=== PATIENT | male | born 1970 | race African-American/Black ===

== ENCOUNTER 2023-07-13 15:52 | Inpatient (IN) | payer OTHER ==
[~2023-07-13] VITALS: Ht 170.2 cm; Wt 88.0 kg
[2023-07-13 16:32] LABS: HEMATOCRIT. 46.2 % (42.0-52.0); HEMOGLOBIN. 15.7 g/dL (14.0-18.0); MEAN CORPUSCULAR HEMOGLOBIN 30.7 pg (28.0-32.0); MEAN CORPUSCULAR HGB CONC 33.9 g/dL (31.0-37.0); MEAN CORPUSCULAR VOLUME 90.4 fL (80.0-94.0); MEAN PLATELET VOLUME 9.1 fl (7.4-10.4); PLATELET 260 x1000/uL (130-400); RED BLOOD CELL COUNT 5.11 mill/uL (4.7-6.1); RED CELL DISTRIBUTION WIDTH 14.4 % (11.6-14.6); WHITE BLOOD COUNT 31.3 x1000/uL (4.5-11.0)
[2023-07-13 16:34] LABS: DIFFERENTIAL COMMENT 1
[2023-07-13] MEDS: ETOMIDATE 2MG/ML 10ML VIAL IV ONE (16:34)
[2023-07-13] MEDS: SUCCINYLCHOLINE CHLORIDE 200MG/10ML IV ONE (16:35)
[2023-07-13 16:36] VITALS: PULSE 125; RESP 36
[2023-07-13] MEDS ORDERED: FENTANYL 2500MCG/250ML PMX 250 ML IV ONE (16:45)
[2023-07-13 16:49] LABS: AMMONIA < 17 uMol/L (<32)
[2023-07-13 16:50] LABS: PLATELET ESTIMATE NORMAL
[2023-07-13 16:52] LABS: ACETAMINOPHEN < 2 ug/mL (10-30); ALANINE AMINOTRANSFERASE 266 IU/L (10-49); ALBUMIN 5.3 g/dL (3.2-4.8); ASPARTATE AMINOTRANSFERASE 286 IU/L (<34); CALCIUM 9.2 mg/dL (8.7-10.4); CARBON DIOXIDE 18 mEq/L (21-32); CHLORIDE 109 mEq/L (98-107); GLUCOSE 96 mg/dL (70-105); PROTEIN TOTAL 8.5 g/dL (6.0-8.3); SODIUM 139 mEq/L (136-145); THYROID STIMULATING HORMONE 1.82 uIU/mL (0.55-4.78); UREA NITROGEN BLOOD 22 mg/dL (9-23)
[2023-07-13 16:55] LABS: LACTIC ACID 2.8 mmol/L (0.4-2.0)
[2023-07-13] MEDS: PROPOFOL 10MG/ML 100ML 100 ML IV ONE (16:59)
[2023-07-13] MEDS: FENTANYL 2500MCG/250ML PMX 250 ML IV PRN (17:00)
[2023-07-13] MEDS: SODIUM CHLORIDE 0.9% 1,000 ML IV ONE ×2 (17:00→17:51)
[2023-07-13] MEDS: MIDAZOLAM HCL 2 MG/2 ML VIAL IV ONE ×2 (17:00→17:20)
[2023-07-13] MEDS ORDERED: MIDAZOLAM 100MG/100ML PMX 100 ML IV PRN (17:00)
[2023-07-13 17:01] LABS: ETHANOL BLOOD < 10 mg/dL (<10); POTASSIUM 6.2 mEq/L (3.5-5.1); TROPONIN I HIGH SENSITIVITY 1842 ng/L (3.0-53)
[2023-07-13] MEDS ORDERED: CALCIUM GLUCONATE 1,000 MG in DEXT 5% WATER 100 ML IV ONE (17:15)
[2023-07-13 17:20] VITALS: PULSE 95; RESP 34
[2023-07-13] MEDS: ALBUTEROL (0.083%) 2.5MG/3ML NEB HHN SCH (17:20)
[2023-07-13] MEDS: CALCIUM GLUCONATE 1GM PREMIX 50 ML IV NR (17:40)
[2023-07-13] MEDS: DEXTROSE 50% WATER 50ML SYRINGE IV ONE (17:41)
[2023-07-13 17:45] VITALS: PULSE 102; RESP 25
[2023-07-13] MEDS: SODIUM BICARBONATE 8.4% 1 MEQ/ML 50ML SYR IV ONE (17:51)
[2023-07-13] MEDS: INSULIN REGULAR (HUMULIN R) 300UNITS/3ML VIAL IV ONE (17:51)
[2023-07-13 17:52] LABS: CLARITY URINE CLOUDY (CLEAR); COLOR URINE YELLOW (YELLOW); GLUCOSE URINE NEGATIVE (NEGATIVE); KETONES URINE TRACE (NEGATIVE); LEUKOCYTE ESTERASE URINE NEGATIVE (NEGATIVE); NITRITE URINE NEGATIVE (NEGATIVE); OCCULT BLOOD URINE 2+ (NEGATIVE); PH URINE 5.5 (4.5-8.0); PROTEIN URINE 2+ (NEGATIVE); SPECIFIC GRAVITY URINE 1.012 (1.005-1.030); UROBILINOGEN URINE 0.2 E.U./dL (0.2-1.0)
[2023-07-13 18:11] VITALS: PULSE 98; RESP 25
[2023-07-13 18:27] LABS: BACTERIA URINE 2+; SQUAMOUS EPITHELIAL CELL URINE 1+ /lpf (RARE/1+)
[2023-07-13 18:28] LABS: HYALINE CASTS URINE 0-5 /lpf; MUCUS URINE 1+ /lpf (NONE/TRACE); WBC URINE 0-2 /hpf (0-2)
[2023-07-13 18:29] LABS: COARSE GRANULAR CASTS URINE 0-5 /lpf
[2023-07-13 18:36] LABS: *AMPHETAMINES SCREEN URINE NEGATIVE (NEGATIVE); *BARBITURATES SCREEN URINE NEGATIVE (NEGATIVE); *BENZODIAZEPINES SCREEN URINE PRESUMPTIVE POSITIVE (NEGATIVE); *COCAINE SCREEN URINE PRESUMPTIVE POSITIVE (NEGATIVE); CANNABINOID URINE SCREEN NEGATIVE (NEGATIVE); ECSTASY MDMA SCREEN URINE NEGATIVE (NEGATIVE); METHADONE URINE SCREEN Neg (NEGATIVE); OPIATES URINE SCREEN NEGATIVE (NEGATIVE); PHENCYCLIDINE URINE SCREEN NEGATIVE (NEGATIVE)
[2023-07-13 19:05] LABS: BG BASE EXCESS -4.9 mmol/L (-2.0-2.0); BG CARBOXYHEMOGLOBIN 0.8 % (0.5-1.5); BG DEOXYHEMOGLOBIN 0.7 % (0.0-5.0); BG FRACTION INSPIRED OXYGEN 100; BG HCO3 ACT 20.9 mmol/L (22.0-26.0); BG METHEMOGLOBIN 0.5 % (0.0-1.5); BG OXYGEN SATURATION 99.3 % (92.0-98.5); BG PCO2 41.2 mmHg (35.0-45.0); BG PH 7.323 (7.350-7.450); BG PO2 263.8 mmHg (75.0-100.0); BG SAMPLE SITE RIGHT RADIAL; BG VENT MODE VENT - AC
[2023-07-13 20:05] VITALS: PULSE 100; RESP 18
[2023-07-13] MEDS: PIPERACILLIN/TAZO 3.375G/50ML 50 ML IV STA (20:14)
[2023-07-13] MEDS: PROPOFOL 10MG/ML 100ML 100 ML IV PRN (22:56)
[2023-07-13 23:10] VITALS: PULSE 99; RESP 20
[2023-07-13] MEDS: PIPERACILLIN/TAZO 3.375G/50ML 50 ML IV SCH (23:41)
[2023-07-13 23:52] LABS: CREATINE KINASE 750 IU/L (46-171)
[2023-07-14] VITALS (59 sets, daily range): BP systolic 98–152; BP diastolic 69–94; PULSE 75–114; RESP 18–31; TEMP 98.5–102.7
[2023-07-14] MEDS: SODIUM CHLORIDE 0.9% 1,000 ML IV ONE (00:19)
[2023-07-14] MEDS: DEXT 5%/0.45% NACL 1000ML 1,000 ML IV SCH (00:20)
[2023-07-14 06:00] LABS: BASOPHILS % 0.3 % (0.0-2.0); EOSINOPHILS % 0.1 % (0.0-5.0); HEMOGLOBIN. 14.4 g/dL (14.0-18.0); LYMPHOCYTES % 9.2 % (20.0-50.0); MEAN CORPUSCULAR HEMOGLOBIN 30.6 pg (28.0-32.0); MEAN CORPUSCULAR HGB CONC 33.5 g/dL (31.0-37.0); MEAN CORPUSCULAR VOLUME 91.2 fL (80.0-94.0); MEAN PLATELET VOLUME 8.9 fl (7.4-10.4); MONOCYTES % 8.2 % (2.0-8.0); NEUTROPHILS % 82.2 % (40.0-76.0); PLATELET 192 x1000/uL (130-400); RED BLOOD CELL COUNT 4.71 mill/uL (4.7-6.1); RED CELL DISTRIBUTION WIDTH 15.1 % (11.6-14.6); WHITE BLOOD COUNT 16.5 x1000/uL (4.5-11.0)
[2023-07-14 06:07] LABS: PROTHROMBIN TIME 11.3 sec (9.6-11.0)
[2023-07-14 06:23] LABS: CALCIUM 8.5 mg/dL (8.7-10.4); CARBON DIOXIDE 23 mEq/L (21-32); CHLORIDE 114 mEq/L (98-107); GLUCOSE 126 mg/dL (70-105); POTASSIUM 4.3 mEq/L (3.5-5.1); SODIUM 143 mEq/L (136-145); UREA NITROGEN BLOOD 19 mg/dL (9-23)
[2023-07-14 06:25] LABS: CREATININE 1.9 mg/dL (0.6-1.3)
[2023-07-14 06:33] LABS: TROPONIN I HIGH SENSITIVITY 11566 ng/L (3.0-53)
[2023-07-14 07:58] LABS: BG BASE EXCESS -4.9 mmol/L (-2.0-2.0); BG CARBOXYHEMOGLOBIN 0.7 % (0.5-1.5); BG DEOXYHEMOGLOBIN 2.1 % (0.0-5.0); BG FRACTION INSPIRED OXYGEN 60; BG HCO3 ACT 21.3 mmol/L (22.0-26.0); BG METHEMOGLOBIN 0.2 % (0.0-1.5); BG OXYGEN SATURATION 97.9 % (92.0-98.5); BG PCO2 43.7 mmHg (35.0-45.0); BG PH 7.306 (7.350-7.450); BG SAMPLE SITE RIGHT RADIAL; BG TOTAL HEMOGLOBIN 15.3 g/dL (12.0-18.0); BG VENT MODE VENT - AC
[2023-07-14] MEDS: FENTANYL 2500MCG/250ML PMX 250 ML IV PRN ×2 (09:46→19:13)
[2023-07-14] MEDS: PANTOPRAZOLE SODIUM 40 MG/VIAL IV SCH (11:18)
[2023-07-14] MEDS: AZITHROMYCIN 500MG/250ML 250 ML IV SCH (18:26)
[2023-07-14] MEDS: PIPERACILLIN/TAZO 3.375G/50ML 50 ML IV SCH (18:37)
[2023-07-14] MEDS: ACETAMINOPHEN 650MG/20.3ML UDC GT PRN (19:56)
[2023-07-14] MEDS: PROPOFOL 10MG/ML 100ML 100 ML IV PRN (23:14)
[2023-07-15] VITALS (69 sets, daily range): BP systolic 70–172; BP diastolic 44–114; PULSE 10–134; RESP 18–44; TEMP 98.8–102.8
[2023-07-15 05:38] LABS: BASOPHILS % 0.3 % (0.0-2.0); EOSINOPHILS % 0.8 % (0.0-5.0); HEMATOCRIT. 41.5 % (42.0-52.0); HEMOGLOBIN. 13.9 g/dL (14.0-18.0); LYMPHOCYTES % 9.6 % (20.0-50.0); MEAN CORPUSCULAR HEMOGLOBIN 30.8 pg (28.0-32.0); MEAN CORPUSCULAR HGB CONC 33.4 g/dL (31.0-37.0); MEAN CORPUSCULAR VOLUME 92.1 fL (80.0-94.0); MEAN PLATELET VOLUME 9.6 fl (7.4-10.4); MONOCYTES % 9.5 % (2.0-8.0); NEUTROPHILS % 79.8 % (40.0-76.0); PLATELET 167 x1000/uL (130-400); RED CELL DISTRIBUTION WIDTH 15.2 % (11.6-14.6); WHITE BLOOD COUNT 16.9 x1000/uL (4.5-11.0)
[2023-07-15 05:42] LABS: CALCIUM 8.9 mg/dL (8.7-10.4); CARBON DIOXIDE 26 mEq/L (21-32); CHLORIDE 112 mEq/L (98-107); CREATININE 1.6 mg/dL (0.6-1.3); GLUCOSE 121 mg/dL (70-105); PHOSPHORUS 2.2 mg/dL (2.5-4.9); POTASSIUM 4.1 mEq/L (3.5-5.1); SODIUM 141 mEq/L (136-145); TRIGLYCERIDE 189 mg/dL (0-150); UREA NITROGEN BLOOD 13 mg/dL (9-23)
[2023-07-15] MEDS ORDERED: HYDR12.54 PO (08:24)
[2023-07-15] MEDS ORDERED: ATOR10TA MT (08:24)
[2023-07-15 10:25] LABS: BG BASE EXCESS -0.3 mmol/L (-2.0-2.0); BG CARBOXYHEMOGLOBIN 0.1 % (0.5-1.5); BG DEOXYHEMOGLOBIN 10.5 % (0.0-5.0); BG FRACTION INSPIRED OXYGEN 40; BG HCO3 ACT 24.1 mmol/L (22.0-26.0); BG METHEMOGLOBIN 0.3 % (0.0-1.5); BG OXYGEN SATURATION 89.5 % (92.0-98.5); BG OXYHEMOGLOBIN 89.1 % (94.0-97.0); BG PCO2 38.9 mmHg (35.0-45.0); BG PO2 55.2 mmHg (75.0-100.0); BG SAMPLE SITE RIGHT RADIAL; BG TOTAL HEMOGLOBIN 14.6 g/dL (12.0-18.0); BG VENT MODE VENT - AC
[2023-07-15] MEDS: PROPOFOL 10MG/ML 100ML 100 ML IV PRN (12:28)
[2023-07-15] MEDS: DEXMEDETOMIDINE 400 MCG/100 ML 100 ML IV PRN (12:31)
[2023-07-15] MEDS: ENOXAPARIN 40MG/0.4ML SYR SUBCUT SCH (14:04)
[2023-07-15] MEDS: NOREPINEPHRINE 8MG/250ML PMX 250 ML IV PRN (19:33)
[2023-07-15] MEDS: VANCOMYCIN 1.5GM/250ML 250 ML IV NR (21:37)
[2023-07-16] VITALS (63 sets, daily range): BP systolic 77–158; BP diastolic 51–118; PULSE 71–111; RESP 12–52; TEMP 98.9–103.3
[2023-07-16 01:26] LABS: BG BASE EXCESS -5.8 mmol/L (-2.0-2.0); BG CARBOXYHEMOGLOBIN 0.3 % (0.5-1.5); BG DEOXYHEMOGLOBIN 18.3 % (0.0-5.0); BG FRACTION INSPIRED OXYGEN 100; BG HCO3 ACT 21.6 mmol/L (22.0-26.0); BG METHEMOGLOBIN 0.2 % (0.0-1.5); BG OXYGEN SATURATION 81.6 % (92.0-98.5); BG OXYHEMOGLOBIN 81.2 % (94.0-97.0); BG PCO2 49.8 mmHg (35.0-45.0); BG PH 7.256 (7.350-7.450); BG PO2 52.3 mmHg (75.0-100.0); BG SAMPLE SITE RIGHT BRACHIAL; BG TOTAL HEMOGLOBIN 14.8 g/dL (12.0-18.0); BG VENT MODE VENT - AC
[2023-07-16] MEDS: MIDAZOLAM 100MG/100ML PMX 100 ML IV PRN (01:57)
[2023-07-16 05:41] LABS: BASOPHILS % 0.7 % (0.0-2.0); EOSINOPHILS % 0.6 % (0.0-5.0); HEMATOCRIT. 39.5 % (42.0-52.0); LYMPHOCYTES % 8.2 % (20.0-50.0); MEAN CORPUSCULAR HEMOGLOBIN 30.8 pg (28.0-32.0); MEAN CORPUSCULAR VOLUME 93.3 fL (80.0-94.0); MEAN PLATELET VOLUME 10.4 fl (7.4-10.4); NEUTROPHILS % 83.5 % (40.0-76.0); PLATELET 114 x1000/uL (130-400); RED BLOOD CELL COUNT 4.24 mill/uL (4.7-6.1); RED CELL DISTRIBUTION WIDTH 15.2 % (11.6-14.6)
[2023-07-16 05:53] LABS: POTASSIUM 4.1 mEq/L (3.5-5.1)
[2023-07-16 05:54] LABS: CALCIUM 8.9 mg/dL (8.7-10.4)
[2023-07-16 05:59] LABS: CREATININE 1.5 mg/dL (0.6-1.3)
[2023-07-16] MEDS ORDERED: POTASSIUM CHLORIDE 20MEQ/PACKET PO ONE (08:15)
[2023-07-16 08:20] LABS: BG BASE EXCESS -6.1 mmol/L (-2.0-2.0); BG CARBOXYHEMOGLOBIN 0.3 % (0.5-1.5); BG DEOXYHEMOGLOBIN 10.9 % (0.0-5.0); BG FRACTION INSPIRED OXYGEN 100; BG HCO3 ACT 20.7 mmol/L (22.0-26.0); BG METHEMOGLOBIN 0.3 % (0.0-1.5); BG OXYHEMOGLOBIN 88.5 % (94.0-97.0); BG PCO2 45.8 mmHg (35.0-45.0); BG PH 7.274 (7.350-7.450); BG PO2 61.8 mmHg (75.0-100.0); BG SAMPLE SITE LEFT RADIAL; BG TOTAL HEMOGLOBIN 14.8 g/dL (12.0-18.0); BG TOTAL RESPIRATORY RATE 24 b/min; BG VENT MODE VENT - AC
[2023-07-16] MEDS: VANCOMYCIN 750MG PREMIX 150 ML IV SCH (13:11)
[2023-07-16] MEDS: METHYLPREDNISOLONE SOD SUCC 125MG/2ML (ACT-O-VIAL) IV SCH (13:11)
[2023-07-16] MEDS: PROPOFOL 10MG/ML 100ML 100 ML IV PRN (16:47)
[2023-07-16] MEDS: PANTOPRAZOLE SODIUM 40 MG/VIAL IV SCH (21:13)
[2023-07-17] VITALS (66 sets, daily range): BP systolic 118–149; BP diastolic 75–92; PULSE 53–85; RESP 24–44; TEMP 96.6–101.2
[2023-07-17 05:39] LABS: HEMOGLOBIN. 12.9 g/dL (14.0-18.0); MEAN CORPUSCULAR HEMOGLOBIN 30.6 pg (28.0-32.0); MEAN CORPUSCULAR HGB CONC 33.1 g/dL (31.0-37.0); MEAN CORPUSCULAR VOLUME 92.4 fL (80.0-94.0); MEAN PLATELET VOLUME 10.2 fl (7.4-10.4); PLATELET 143 x1000/uL (130-400); RED BLOOD CELL COUNT 4.22 mill/uL (4.7-6.1); RED CELL DISTRIBUTION WIDTH 15.1 % (11.6-14.6); WHITE BLOOD COUNT 23.9 x1000/uL (4.5-11.0)
[2023-07-17 05:44] LABS: CHLORIDE 108 mEq/L (98-107); POTASSIUM 4.7 mEq/L (3.5-5.1); SODIUM 139 mEq/L (136-145)
[2023-07-17 05:45] LABS: CARBON DIOXIDE 23 mEq/L (21-32)
[2023-07-17 05:46] LABS: CALCIUM 9.7 mg/dL (8.7-10.4)
[2023-07-17 05:50] LABS: CREATININE 1.4 mg/dL (0.6-1.3); GLUCOSE 185 mg/dL (70-105)
[2023-07-17 05:51] LABS: TRIGLYCERIDE 205 mg/dL (0-150); UREA NITROGEN BLOOD 20 mg/dL (9-23)
[2023-07-17 06:32] LABS: DIFFERENTIAL COMMENT 1
[2023-07-17 10:43] LABS: BG BASE EXCESS -1.8 mmol/L (-2.0-2.0); BG CARBOXYHEMOGLOBIN 0.4 % (0.5-1.5); BG DEOXYHEMOGLOBIN 0.5 % (0.0-5.0); BG FRACTION INSPIRED OXYGEN 100; BG HCO3 ACT 23.5 mmol/L (22.0-26.0); BG METHEMOGLOBIN 0.3 % (0.0-1.5); BG OXYGEN SATURATION 99.5 % (92.0-98.5); BG OXYHEMOGLOBIN 98.8 % (94.0-97.0); BG PH 7.366 (7.350-7.450); BG PO2 231.3 mmHg (75.0-100.0); BG SAMPLE SITE RIGHT RADIAL; BG TOTAL HEMOGLOBIN 13.8 g/dL (12.0-18.0); BG VENT MODE VENT - AC
[2023-07-17 11:13] LABS: PLATELET ESTIMATE NORMAL
[2023-07-18] VITALS (59 sets, daily range): BP systolic 125–161; BP diastolic 72–98; PULSE 53–83; RESP 13–42; TEMP 96.7–99.7
[2023-07-18 05:49] LABS: HEMATOCRIT. 36.9 % (42.0-52.0); HEMOGLOBIN. 12.4 g/dL (14.0-18.0); MEAN CORPUSCULAR HEMOGLOBIN 30.6 pg (28.0-32.0); MEAN CORPUSCULAR HGB CONC 33.6 g/dL (31.0-37.0); MEAN CORPUSCULAR VOLUME 90.9 fL (80.0-94.0); MEAN PLATELET VOLUME 10.3 fl (7.4-10.4); PLATELET 213 x1000/uL (130-400); RED BLOOD CELL COUNT 4.06 mill/uL (4.7-6.1); RED CELL DISTRIBUTION WIDTH 14.7 % (11.6-14.6); WHITE BLOOD COUNT 23.4 x1000/uL (4.5-11.0)
[2023-07-18 05:50] LABS: DIFFERENTIAL COMMENT 1
[2023-07-18 05:58] LABS: CHLORIDE 109 mEq/L (98-107); POTASSIUM 3.9 mEq/L (3.5-5.1); SODIUM 144 mEq/L (136-145)
[2023-07-18 05:59] LABS: CARBON DIOXIDE 24 mEq/L (21-32)
[2023-07-18 06:04] LABS: CREATININE 1.4 mg/dL (0.6-1.3); GLUCOSE 138 mg/dL (70-105); UREA NITROGEN BLOOD 35 mg/dL (9-23)
[2023-07-18] MEDS: HYDRALAZINE 20MG/ML VIAL IV PRN (08:08)
[2023-07-18 09:49] LABS: BG BASE EXCESS 2.4 mmol/L (-2.0-2.0); BG CARBOXYHEMOGLOBIN 0.3 % (0.5-1.5); BG DEOXYHEMOGLOBIN 1.4 % (0.0-5.0); BG FRACTION INSPIRED OXYGEN 60; BG HCO3 ACT 25.4 mmol/L (22.0-26.0); BG METHEMOGLOBIN 0.4 % (0.0-1.5); BG OXYGEN SATURATION 98.6 % (92.0-98.5); BG OXYHEMOGLOBIN 97.9 % (94.0-97.0); BG PCO2 33.8 mmHg (35.0-45.0); BG PH 7.493 (7.350-7.450); BG PO2 142.9 mmHg (75.0-100.0); BG SAMPLE SITE RIGHT RADIAL; BG TOTAL HEMOGLOBIN 12.3 g/dL (12.0-18.0); BG VENT MODE VENT - AC
[2023-07-18 11:00] LABS: ANISOCYTOSIS 1+; PLATELET ESTIMATE NORMAL
[2023-07-18] MEDS: AMLODIPINE 10MG TABLET PO SCH (13:25)
[2023-07-18] MEDS: ACETAMINOPHEN 650MG/20.3ML UDC GT PRN (16:56)
[2023-07-18] MEDS: PROPOFOL 10MG/ML 100ML 100 ML IV PRN (18:39)
[2023-07-18] MEDS: HYDRALAZINE HCL 50MG TABLET PO SCH (20:53)
[2023-07-19] VITALS (67 sets, daily range): BP systolic 124–168; BP diastolic 68–131; PULSE 46–78; RESP 0–37; TEMP 97.3–100.2
[2023-07-19 04:45] LABS: CALCIUM 9.7 mg/dL (8.7-10.4); CARBON DIOXIDE 25 mEq/L (21-32); CHLORIDE 114 mEq/L (98-107); POTASSIUM 4.2 mEq/L (3.5-5.1); SODIUM 149 mEq/L (136-145)
[2023-07-19 04:46] LABS: HEMATOCRIT. 36.3 % (42.0-52.0); HEMOGLOBIN. 12.2 g/dL (14.0-18.0); MEAN CORPUSCULAR HEMOGLOBIN 30.3 pg (28.0-32.0); MEAN CORPUSCULAR HGB CONC 33.6 g/dL (31.0-37.0); MEAN CORPUSCULAR VOLUME 89.9 fL (80.0-94.0); MEAN PLATELET VOLUME 9.2 fl (7.4-10.4); PLATELET 273 x1000/uL (130-400); RED BLOOD CELL COUNT 4.03 mill/uL (4.7-6.1); RED CELL DISTRIBUTION WIDTH 14.7 % (11.6-14.6); WHITE BLOOD COUNT 16.4 x1000/uL (4.5-11.0)
[2023-07-19 04:49] LABS: CREATININE 1.3 mg/dL (0.6-1.3)
[2023-07-19 04:50] LABS: GLUCOSE 162 mg/dL (70-105); UREA NITROGEN BLOOD 42 mg/dL (9-23)
[2023-07-19 04:52] LABS: PHOSPHORUS 3.3 mg/dL (2.5-4.9)
[2023-07-19 05:42] LABS: DIFFERENTIAL COMMENT 1
[2023-07-19] MEDS: PROPOFOL 10MG/ML 100ML 100 ML IV PRN (06:47)
[2023-07-19] MEDS: DEXTROSE 5% WATER 1,000 ML IV SCH (08:02)
[2023-07-19 09:56] LABS: BG BASE EXCESS 0.7 mmol/L (-2.0-2.0); BG CARBOXYHEMOGLOBIN 0.1 % (0.5-1.5); BG DEOXYHEMOGLOBIN 1.4 % (0.0-5.0); BG FRACTION INSPIRED OXYGEN 60; BG HCO3 ACT 23.8 mmol/L (22.0-26.0); BG METHEMOGLOBIN 0.3 % (0.0-1.5); BG OXYGEN SATURATION 98.6 % (92.0-98.5); BG OXYHEMOGLOBIN 98.2 % (94.0-97.0); BG PCO2 33.6 mmHg (35.0-45.0); BG PH 7.469 (7.350-7.450); BG PO2 177.2 mmHg (75.0-100.0); BG SAMPLE SITE RIGHT RADIAL; BG TOTAL HEMOGLOBIN 12.6 g/dL (12.0-18.0); BG VENT MODE VENT - AC
[2023-07-19 12:00] LABS: PLATELET ESTIMATE NORMAL
[2023-07-19] MEDS: LORAZEPAM 2MG/ML INJ IV PRN (12:01)
[2023-07-19] MEDS: KETAMINE HCL 100 MG in SODIUM CHLORIDE 0.9% 98 ML IV NR (13:21)
[2023-07-19] MEDS: KETAMINE HCL 100 MG in SODIUM CHLORIDE 0.9% 98 ML IV PRN (16:47)
[2023-07-20] VITALS (67 sets, daily range): BP systolic 137–189; BP diastolic 73–153; PULSE 53–85; RESP 12–45; TEMP 97.5–100.2
[2023-07-20 05:51] LABS: CHLORIDE 116 mEq/L (98-107); POTASSIUM 5.4 mEq/L (3.5-5.1); SODIUM 148 mEq/L (136-145)
[2023-07-20 05:52] LABS: CALCIUM 9.3 mg/dL (8.7-10.4); CARBON DIOXIDE 22 mEq/L (21-32)
[2023-07-20 05:57] LABS: CREATININE 1.1 mg/dL (0.6-1.3); GLUCOSE 151 mg/dL (70-105); TRIGLYCERIDE 491 mg/dL (0-150); UREA NITROGEN BLOOD 24 mg/dL (9-23)
[2023-07-20 05:59] LABS: PHOSPHORUS 3.3 mg/dL (2.5-4.9)
[2023-07-20 06:35] LABS: BASOPHILS % 0.3 % (0.0-2.0); EOSINOPHILS % 0.5 % (0.0-5.0); HEMATOCRIT. 44.9 % (42.0-52.0); HEMOGLOBIN. 14.5 g/dL (14.0-18.0); LYMPHOCYTES % 7.3 % (20.0-50.0); MEAN CORPUSCULAR HEMOGLOBIN 30.5 pg (28.0-32.0); MEAN CORPUSCULAR HGB CONC 32.2 g/dL (31.0-37.0); MEAN CORPUSCULAR VOLUME 94.7 fL (80.0-94.0); MONOCYTES % 12.4 % (2.0-8.0); NEUTROPHILS % 79.5 % (40.0-76.0); RED BLOOD CELL COUNT 4.75 mill/uL (4.7-6.1); RED CELL DISTRIBUTION WIDTH 15.6 % (11.6-14.6); WHITE BLOOD COUNT 18.2 x1000/uL (4.5-11.0)
[2023-07-20] MEDS: PROPOFOL 10MG/ML 100ML 100 ML IV PRN (07:11)
[2023-07-20 07:20] LABS: DIFFERENTIAL COMMENT 1
[2023-07-20] MEDS: ENOXAPARIN 30MG/0.3ML SYR SUBCUT SCH (09:38)
[2023-07-20] MEDS: SODIUM CHLORIDE 0.9% IV SCH (10:24)
[2023-07-20] MEDS: KETAMINE HCL IV SCH (10:24)
[2023-07-20] MEDS: SODIUM POLYSTYRENE SULFONATE 15 G/60 ML BOT PO NR (10:26)
[2023-07-20] MEDS: DIPHENHYDRAMINE 50MG/ML VIAL IV PRN (10:33)
[2023-07-20] MEDS ORDERED: FENTANYL 2500MCG/250ML PMX 250 ML IV ONE (11:30)
[2023-07-20 11:34] LABS: CREATINE KINASE 418 IU/L (46-171)
[2023-07-20] MEDS: FENTANYL CITRATE 2,500 MCG in SODIUM CHLORIDE 0.9% 200 ML IV PRN (13:14)
[2023-07-20] MEDS ORDERED: IPRATROPIUM/ALBUTEROL 0.5-3(2.5)MG/3ML NEB HHN PRN (16:15)
[2023-07-20 16:49] LABS: BG BASE EXCESS 1.3 mmol/L (-2.0-2.0); BG CARBOXYHEMOGLOBIN 0.3 % (0.5-1.5); BG DEOXYHEMOGLOBIN 1.7 % (0.0-5.0); BG FRACTION INSPIRED OXYGEN 40; BG HCO3 ACT 26.3 mmol/L (22.0-26.0); BG METHEMOGLOBIN 0.3 % (0.0-1.5); BG OXYGEN SATURATION 98.3 % (92.0-98.5); BG OXYHEMOGLOBIN 97.7 % (94.0-97.0); BG PCO2 43.1 mmHg (35.0-45.0); BG PH 7.404 (7.350-7.450); BG PO2 141.9 mmHg (75.0-100.0); BG SAMPLE SITE RIGHT RADIAL; BG TOTAL HEMOGLOBIN 13.6 g/dL (12.0-18.0); BG TOTAL RESPIRATORY RATE 26 b/min; BG VENT MODE VENT - AC
[2023-07-20] MEDS: IPRATROPIUM/ALBUTEROL 0.5-3(2.5)MG/3ML NEB HHN SCH (20:39)
[2023-07-20] MEDS ORDERED: SODIUM CHLORIDE 0.9% IV ONE (23:15)
[2023-07-20] MEDS ORDERED: KETAMINE HCL IV ONE (23:15)
[2023-07-21] VITALS (83 sets, daily range): BP systolic 107–223; BP diastolic 43–131; PULSE 45–120; RESP 14–40; TEMP 97.8–100.2
[2023-07-21] MEDS: KETAMINE HCL IV PRN (00:26)
[2023-07-21] MEDS: SODIUM CHLORIDE 0.9% IV PRN (00:26)
[2023-07-21 04:28] LABS: HEMATOCRIT. 35.4 % (42.0-52.0); HEMOGLOBIN. 11.7 g/dL (14.0-18.0); MEAN CORPUSCULAR HEMOGLOBIN 29.6 pg (28.0-32.0); MEAN CORPUSCULAR VOLUME 89.9 fL (80.0-94.0); MEAN PLATELET VOLUME 8.8 fl (7.4-10.4); PLATELET 328 x1000/uL (130-400); RED BLOOD CELL COUNT 3.94 mill/uL (4.7-6.1); WHITE BLOOD COUNT 16.4 x1000/uL (4.5-11.0)
[2023-07-21 04:31] LABS: CARBON DIOXIDE 27 mEq/L (21-32); CHLORIDE 115 mEq/L (98-107); POTASSIUM 4.4 mEq/L (3.5-5.1); SODIUM 150 mEq/L (136-145)
[2023-07-21 04:32] LABS: CALCIUM 9.1 mg/dL (8.7-10.4)
[2023-07-21 04:37] LABS: CREATININE 1.2 mg/dL (0.6-1.3); GLUCOSE 182 mg/dL (70-105); TRIGLYCERIDE 375 mg/dL (0-150); UREA NITROGEN BLOOD 29 mg/dL (9-23)
[2023-07-21 04:47] LABS: DIFFERENTIAL COMMENT 1
[2023-07-21] MEDS: DEXMEDETOMIDINE 400 MCG/100 ML 100 ML IV PRN (07:50)
[2023-07-21 08:58] LABS: BG BASE EXCESS 0.3 mmol/L (-2.0-2.0); BG CARBOXYHEMOGLOBIN 0.3 % (0.5-1.5); BG DEOXYHEMOGLOBIN 4.7 % (0.0-5.0); BG FRACTION INSPIRED OXYGEN 40; BG HCO3 ACT 26.8 mmol/L (22.0-26.0); BG METHEMOGLOBIN 0.4 % (0.0-1.5); BG OXYGEN SATURATION 95.3 % (92.0-98.5); BG OXYHEMOGLOBIN 94.6 % (94.0-97.0); BG PCO2 50.6 mmHg (35.0-45.0); BG PH 7.342 (7.350-7.450); BG PO2 85.7 mmHg (75.0-100.0); BG SAMPLE SITE RIGHT RADIAL; BG TOTAL HEMOGLOBIN 13.9 g/dL (12.0-18.0); BG VENT MODE VENT - AC
[2023-07-21 10:46] LABS: ANISOCYTOSIS 1+; NUCLEATED RED BLOOD CELLS 1 /100 WBC; PLATELET ESTIMATE NORMAL
[2023-07-21] MEDS: PROPOFOL 10MG/ML 100ML 100 ML IV PRN (11:55)
[2023-07-21] MEDS: DESMOPRESSIN ACETATE 4MCG/ML AMP IV SCH (11:57)
[2023-07-21] MEDS: FENTANYL 2500MCG/250ML PMX 250 ML IV PRN (15:42)
[2023-07-22] VITALS (70 sets, daily range): BP systolic 108–173; BP diastolic 58–114; PULSE 60–101; RESP 13–70; TEMP 98.1–99.7
[2023-07-22 05:59] LABS: HEMATOCRIT. 36.5 % (42.0-52.0); HEMOGLOBIN. 12.3 g/dL (14.0-18.0); MEAN CORPUSCULAR HEMOGLOBIN 30.6 pg (28.0-32.0); MEAN CORPUSCULAR HGB CONC 33.7 g/dL (31.0-37.0); MEAN CORPUSCULAR VOLUME 90.8 fL (80.0-94.0); MEAN PLATELET VOLUME 8.8 fl (7.4-10.4); PLATELET 383 x1000/uL (130-400); RED BLOOD CELL COUNT 4.02 mill/uL (4.7-6.1); WHITE BLOOD COUNT 26.4 x1000/uL (4.5-11.0)
[2023-07-22 06:06] LABS: CALCIUM 9.2 mg/dL (8.7-10.4); CARBON DIOXIDE 26 mEq/L (21-32); CHLORIDE 114 mEq/L (98-107); POTASSIUM 4.1 mEq/L (3.5-5.1); SODIUM 149 mEq/L (136-145)
[2023-07-22 06:11] LABS: CREATININE 1.2 mg/dL (0.6-1.3); GLUCOSE 127 mg/dL (70-105)
[2023-07-22 06:12] LABS: TRIGLYCERIDE 534 mg/dL (0-150); UREA NITROGEN BLOOD 27 mg/dL (9-23)
[2023-07-22 06:14] LABS: PHOSPHORUS 1.9 mg/dL (2.5-4.9)
[2023-07-22 06:17] LABS: DIFFERENTIAL COMMENT 1
[2023-07-22] MEDS: POTASSIUM PHOSPHATE 20 MMOL in DEXT 5% WATER 243.3333 ML IV NR (10:14)
[2023-07-22 13:18] LABS: PLATELET ESTIMATE NORMAL
[2023-07-22] MEDS: MIDAZOLAM 100MG/100ML PMX 100 ML IV PRN (13:18)
[2023-07-22 18:48] LABS: AMMONIA 37 uMol/L (<32)
[2023-07-22] MEDS: CHLORDIAZEPOXIDE 25MG CAPSULE PO SCH (21:11)
[2023-07-22] MEDS: METHYLPREDNISOLONE SOD SUCC 40MG/ML (ACT-O-VIAL) IV SCH (21:11)
[2023-07-22] MEDS: PROPOFOL 10MG/ML 100ML 100 ML IV PRN (22:55)
[2023-07-23] VITALS (63 sets, daily range): BP systolic 106–154; BP diastolic 52–99; PULSE 51–110; RESP 4–29; TEMP 97.4–99.9
[2023-07-23 09:00] LABS: BG CARBOXYHEMOGLOBIN 0.3 % (0.5-1.5); BG DEOXYHEMOGLOBIN 1.3 % (0.0-5.0); BG FRACTION INSPIRED OXYGEN 60; BG HCO3 ACT 29.8 mmol/L (22.0-26.0); BG METHEMOGLOBIN 0.4 % (0.0-1.5); BG OXYGEN SATURATION 98.7 % (92.0-98.5); BG PCO2 50.2 mmHg (35.0-45.0); BG PH 7.392 (7.350-7.450); BG PO2 160.3 mmHg (75.0-100.0); BG SAMPLE SITE RIGHT RADIAL; BG TOTAL HEMOGLOBIN 12.6 g/dL (12.0-18.0); BG VENT MODE VENT - AC
[2023-07-23] MEDS: LACTULOSE 20G/30ML UDC PO NR (10:10)
[2023-07-23] MEDS ORDERED: HYDROCODONE/ACETAMINOPHEN 5/325MG TABLET PO PRN (11:30)
[2023-07-23] MEDS ORDERED: NALOXONE HCL 0.4MG/ML VIAL IV PRN (11:30)
[2023-07-23 12:55] LABS: BASOPHILS % 1.4 % (0.0-2.0); DIFFERENTIAL COMMENT 0; EOSINOPHILS % 0.3 % (0.0-5.0); HEMATOCRIT. 38.1 % (42.0-52.0); HEMOGLOBIN. 12.4 g/dL (14.0-18.0); LYMPHOCYTES % 7.1 % (20.0-50.0); MEAN CORPUSCULAR HEMOGLOBIN 29.9 pg (28.0-32.0); MEAN CORPUSCULAR HGB CONC 32.6 g/dL (31.0-37.0); MEAN CORPUSCULAR VOLUME 91.7 fL (80.0-94.0); MEAN PLATELET VOLUME 9.7 fl (7.4-10.4); MONOCYTES % 3.7 % (2.0-8.0); NEUTROPHILS % 87.5 % (40.0-76.0); PLATELET 386 x1000/uL (130-400); RED BLOOD CELL COUNT 4.15 mill/uL (4.7-6.1); RED CELL DISTRIBUTION WIDTH 14.6 % (11.6-14.6); WHITE BLOOD COUNT 26.7 x1000/uL (4.5-11.0)
[2023-07-23 13:22] LABS: CHLORIDE 112 mEq/L (98-107); POTASSIUM 4.7 mEq/L (3.5-5.1); SODIUM 144 mEq/L (136-145)
[2023-07-23 13:23] LABS: CARBON DIOXIDE 18 mEq/L (21-32)
[2023-07-23 13:24] LABS: CALCIUM 8.9 mg/dL (8.7-10.4)
[2023-07-23 13:28] LABS: CREATININE 1.1 mg/dL (0.6-1.3); GLUCOSE 237 mg/dL (70-105); UREA NITROGEN BLOOD 21 mg/dL (9-23)
[2023-07-23] MEDS: CHLORDIAZEPOXIDE 25MG CAPSULE PO SCH (14:06)
[2023-07-23] MEDS: PROPOFOL 10MG/ML 100ML 100 ML IV PRN (14:07)
[2023-07-23] MEDS: VANCOMYCIN 1GM/200ML PMX (BAXTER) IV SCH (21:10)
[2023-07-24] VITALS (81 sets, daily range): BP systolic 121–163; BP diastolic 70–117; PULSE 61–123; RESP 0–37; TEMP 98.3–100.7; O2SAT 94
[2023-07-24 06:13] LABS: BASOPHILS % 0.3 % (0.0-2.0); DIFFERENTIAL COMMENT 0; EOSINOPHILS % 0.7 % (0.0-5.0); HEMATOCRIT. 35.1 % (42.0-52.0); HEMOGLOBIN. 11.4 g/dL (14.0-18.0); LYMPHOCYTES % 8.2 % (20.0-50.0); MEAN CORPUSCULAR HEMOGLOBIN 29.6 pg (28.0-32.0); MEAN CORPUSCULAR HGB CONC 32.5 g/dL (31.0-37.0); MEAN CORPUSCULAR VOLUME 91.2 fL (80.0-94.0); MEAN PLATELET VOLUME 9.3 fl (7.4-10.4); MONOCYTES % 6.8 % (2.0-8.0); PLATELET 392 x1000/uL (130-400); RED BLOOD CELL COUNT 3.85 mill/uL (4.7-6.1); RED CELL DISTRIBUTION WIDTH 15.1 % (11.6-14.6)
[2023-07-24 06:38] LABS: AMMONIA 19 uMol/L (<32)
[2023-07-24 07:02] LABS: CARBON DIOXIDE 28 mEq/L (21-32); CHLORIDE 108 mEq/L (98-107); POTASSIUM 3.9 mEq/L (3.5-5.1); SODIUM 143 mEq/L (136-145)
[2023-07-24 07:03] LABS: CALCIUM 8.8 mg/dL (8.7-10.4)
[2023-07-24 07:08] LABS: CREATININE 1.1 mg/dL (0.6-1.3); GLUCOSE 217 mg/dL (70-105); UREA NITROGEN BLOOD 22 mg/dL (9-23)
[2023-07-24 08:27] LABS: BG BASE EXCESS 4.5 mmol/L (-2.0-2.0); BG CARBOXYHEMOGLOBIN 0.3 % (0.5-1.5); BG DEOXYHEMOGLOBIN 1.4 % (0.0-5.0); BG FRACTION INSPIRED OXYGEN 45; BG HCO3 ACT 28.9 mmol/L (22.0-26.0); BG METHEMOGLOBIN 0.6 % (0.0-1.5); BG OXYGEN SATURATION 98.6 % (92.0-98.5); BG OXYHEMOGLOBIN 97.7 % (94.0-97.0); BG PCO2 42.3 mmHg (35.0-45.0); BG PH 7.452 (7.350-7.450); BG PO2 143.7 mmHg (75.0-100.0); BG SAMPLE SITE RIGHT RADIAL; BG TOTAL HEMOGLOBIN 12.6 g/dL (12.0-18.0); BG TOTAL RESPIRATORY RATE 28 b/min; BG VENT MODE VENT - AC
[2023-07-24 10:22] LABS: BG BASE EXCESS 4.1 mmol/L (-2.0-2.0); BG CARBOXYHEMOGLOBIN 0.3 % (0.5-1.5); BG DEOXYHEMOGLOBIN 1.5 % (0.0-5.0); BG FRACTION INSPIRED OXYGEN 40; BG HCO3 ACT 28.5 mmol/L (22.0-26.0); BG METHEMOGLOBIN 0.4 % (0.0-1.5); BG OXYGEN SATURATION 98.5 % (92.0-98.5); BG OXYHEMOGLOBIN 97.8 % (94.0-97.0); BG PCO2 42.1 mmHg (35.0-45.0); BG PH 7.449 (7.350-7.450); BG PO2 139.8 mmHg (75.0-100.0); BG SAMPLE SITE RIGHT RADIAL; BG VENT MODE VENT - CPAP
[2023-07-24] MEDS: METHYLPREDNISOLONE SOD SUCC 40MG/ML (ACT-O-VIAL) IV SCH (21:37)
[2023-07-24] MEDS: CHLORDIAZEPOXIDE 25MG CAPSULE PO SCH (21:38)
[2023-07-25] VITALS (76 sets, daily range): BP systolic 122–163; BP diastolic 75–108; PULSE 86–118; RESP 12–45; TEMP 98.7–99.5; O2SAT 97–98
[2023-07-25 05:48] LABS: HEMATOCRIT. 35.2 % (42.0-52.0); HEMOGLOBIN. 11.9 g/dL (14.0-18.0); MEAN CORPUSCULAR HEMOGLOBIN 30.3 pg (28.0-32.0); MEAN CORPUSCULAR HGB CONC 33.7 g/dL (31.0-37.0); MEAN CORPUSCULAR VOLUME 89.9 fL (80.0-94.0); PLATELET 407 x1000/uL (130-400); RED BLOOD CELL COUNT 3.91 mill/uL (4.7-6.1); RED CELL DISTRIBUTION WIDTH 14.5 % (11.6-14.6); WHITE BLOOD COUNT 22.7 x1000/uL (4.5-11.0)
[2023-07-25 05:51] LABS: DIFFERENTIAL COMMENT 1
[2023-07-25 05:57] LABS: CARBON DIOXIDE 29 mEq/L (21-32); CHLORIDE 108 mEq/L (98-107); POTASSIUM 3.7 mEq/L (3.5-5.1); SODIUM 144 mEq/L (136-145)
[2023-07-25 05:58] LABS: CALCIUM 8.8 mg/dL (8.7-10.4)
[2023-07-25 06:03] LABS: CREATININE 1.1 mg/dL (0.6-1.3); GLUCOSE 186 mg/dL (70-105); UREA NITROGEN BLOOD 21 mg/dL (9-23)
[2023-07-25 07:07] LABS: PLATELET ESTIMATE INCREASED
[2023-07-25 08:37] LABS: TROPONIN I HIGH SENSITIVITY 44 ng/L (3.0-53)
[2023-07-25 12:05] LABS: BG BASE EXCESS 2.6 mmol/L (-2.0-2.0); BG DEOXYHEMOGLOBIN 2.5 % (0.0-5.0); BG FRACTION INSPIRED OXYGEN 60; BG HCO3 ACT 25.9 mmol/L (22.0-26.0); BG METHEMOGLOBIN 0.1 % (0.0-1.5); BG OXYGEN SATURATION 97.5 % (92.0-98.5); BG OXYHEMOGLOBIN 97.4 % (94.0-97.0); BG PCO2 35.5 mmHg (35.0-45.0); BG PH 7.481 (7.350-7.450); BG PO2 103.6 mmHg (75.0-100.0); BG SAMPLE SITE RIGHT RADIAL; BG TOTAL HEMOGLOBIN 12.5 g/dL (12.0-18.0); BG VENT MODE COOL AEROSOL
[2023-07-26] VITALS (27 sets, daily range): BP systolic 120–143; BP diastolic 72–101; PULSE 84–116; RESP 14–41; TEMP 97.7–100.3
[2023-07-26 08:51] LABS: CHLORIDE 111 mEq/L (98-107); POTASSIUM 4.3 mEq/L (3.5-5.1); SODIUM 145 mEq/L (136-145)
[2023-07-26 08:52] LABS: CARBON DIOXIDE 27 mEq/L (21-32)
[2023-07-26 08:53] LABS: CALCIUM 9.4 mg/dL (8.7-10.4); HEMATOCRIT. 35.2 % (42.0-52.0); HEMOGLOBIN. 11.8 g/dL (14.0-18.0); MEAN CORPUSCULAR HGB CONC 33.5 g/dL (31.0-37.0); MEAN CORPUSCULAR VOLUME 89.5 fL (80.0-94.0); MEAN PLATELET VOLUME 9.2 fl (7.4-10.4); PLATELET 403 x1000/uL (130-400); RED BLOOD CELL COUNT 3.93 mill/uL (4.7-6.1); WHITE BLOOD COUNT 24.1 x1000/uL (4.5-11.0)
[2023-07-26 08:57] LABS: CREATININE 1.1 mg/dL (0.6-1.3); GLUCOSE 177 mg/dL (70-105); UREA NITROGEN BLOOD 23 mg/dL (9-23)
[2023-07-26 09:11] LABS: DIFFERENTIAL COMMENT 1
[2023-07-26] MEDS: DESMOPRESSIN ACETATE 4MCG/ML AMP IV SCH (10:54)
[2023-07-26 11:53] LABS: PLATELET ESTIMATE SLIGHTLY INCREASED
[2023-07-26] MEDS: QUETIAPINE FUMARATE 25MG TABLET PO SCH (14:26)
[2023-07-26] MEDS: PREDNISONE 20MG TABLET PO SCH (14:26)
[2023-07-27] VITALS (12 sets, daily range): BP systolic 121–135; BP diastolic 81–93; PULSE 89–119; RESP 21–37; TEMP 97.3–101
[2023-07-27 07:10] LABS: BASOPHILS % 0.5 % (0.0-2.0); DIFFERENTIAL COMMENT 0; EOSINOPHILS % 1.4 % (0.0-5.0); HEMATOCRIT. 35.7 % (42.0-52.0); HEMOGLOBIN. 11.9 g/dL (14.0-18.0); LYMPHOCYTES % 10.2 % (20.0-50.0); MEAN CORPUSCULAR HEMOGLOBIN 29.7 pg (28.0-32.0); MEAN CORPUSCULAR HGB CONC 33.3 g/dL (31.0-37.0); MEAN CORPUSCULAR VOLUME 89.1 fL (80.0-94.0); MEAN PLATELET VOLUME 9.7 fl (7.4-10.4); NEUTROPHILS % 77.9 % (40.0-76.0); PLATELET 415 x1000/uL (130-400); RED CELL DISTRIBUTION WIDTH 14.9 % (11.6-14.6); WHITE BLOOD COUNT 24.4 x1000/uL (4.5-11.0)
[2023-07-27 07:26] LABS: CHLORIDE 111 mEq/L (98-107); POTASSIUM 3.7 mEq/L (3.5-5.1); SODIUM 145 mEq/L (136-145)
[2023-07-27 07:27] LABS: CARBON DIOXIDE 27 mEq/L (21-32)
[2023-07-27 07:28] LABS: CALCIUM 9.4 mg/dL (8.7-10.4)
[2023-07-27 07:32] LABS: CREATININE 1.1 mg/dL (0.6-1.3); GLUCOSE 115 mg/dL (70-105)
[2023-07-27 07:33] LABS: UREA NITROGEN BLOOD 26 mg/dL (9-23)
[2023-07-27] MEDS ORDERED: CEFEPIME 1GM IN DEXT 5% 50ML IV SCH (20:15)
[2023-07-27] MEDS: CEFEPIME 1GM/50ML 50 ML IV SCH (21:20)
[2023-07-27 22:38] LABS: CLARITY URINE CLEAR (CLEAR); COLOR URINE YELLOW (YELLOW); GLUCOSE URINE 2+ (NEGATIVE); KETONES URINE NEGATIVE (NEGATIVE); LEUKOCYTE ESTERASE URINE NEGATIVE (NEGATIVE); NITRITE URINE NEGATIVE (NEGATIVE); OCCULT BLOOD URINE TRACE (NEGATIVE); PROTEIN URINE NEGATIVE (NEGATIVE); SPECIFIC GRAVITY URINE 1.017 (1.005-1.030); UROBILINOGEN URINE 0.2 E.U./dL (0.2-1.0)
[2023-07-27 22:54] LABS: BACTERIA URINE 1+; SQUAMOUS EPITHELIAL CELL URINE FEW /lpf (RARE/1+); WBC URINE 0-2 /hpf (0-2)
[2023-07-28] VITALS (12 sets, daily range): BP systolic 127–147; BP diastolic 83–96; PULSE 85–111; RESP 18–32; TEMP 97.3–98.9
[2023-07-28] MEDS: ONDANSETRON HCL 4MG/2ML INJ IV PRN (00:05)
[2023-07-28] MEDS: CEFEPIME 2GM/100ML 100 ML IV SCH (14:24)
[2023-07-29] VITALS: BP 129/87; PULSE 91; RESP 28; TEMP 99.4
[2023-07-29 02:00] VITALS: BP 129/87; PULSE 99; RESP 31
[2023-07-29 04:00] VITALS: BP 151/101; PULSE 108; RESP 21; TEMP 98.6
[2023-07-29 06:00] VITALS: BP 111/63; PULSE 92; RESP 26
[2023-07-29 08:00] VITALS: BP 127/92; PULSE 87; RESP 21; TEMP 97.8
== END 2023-07-29 08:56 | DRG 917 ==
LOC: ER 15:52 → MICUSO 18:59 → CVICU 07-14 09:25 → 5EST 07-26 13:30
PROVIDERS: ADMIT Internal Medicine; ATTEND Internal Medicine
PROC: 5A1955Z Respiratory Ventilation, Greater than 96 Consecutive Hours (ICD-10-PCS; principal; 2023-07-13)
PROC: 0BH17EZ Insertion of Endotracheal Airway into Trachea, Via Natural or Artificial Opening (ICD-10-PCS; 2023-07-13)
PROC: 5A1935Z Respiratory Ventilation, Less than 24 Consecutive Hours (ICD-10-PCS; 2023-07-26)
DX: T50.901A Poisoning by unspecified drugs, medicaments and biological substances, accidental (unintentional), initial encounter (principal); A41.9 Sepsis, unspecified organism; G92.8 Other toxic encephalopathy; N17.0 Acute kidney failure with tubular necrosis; J69.0 Pneumonitis due to inhalation of food and vomit; J80 Acute respiratory distress syndrome; R65.20 Severe sepsis without septic shock; Z20.822 Contact with and (suspected) exposure to COVID-19; J18.9 Pneumonia, unspecified organism; I21.A1 Myocardial infarction type 2; Z99.11 Dependence on respirator [ventilator] status; K92.2 Gastrointestinal hemorrhage, unspecified; E72.20 Disorder of urea cycle metabolism, unspecified; E87.5 Hyperkalemia; F14.90 Cocaine use, unspecified, uncomplicated; N18.9 Chronic kidney disease, unspecified; I12.9 Hypertensive chronic kidney disease with stage 1 through stage 4 chronic kidney disease, or unspecified chronic kidney disease; I16.0 Hypertensive urgency; Z74.01 Bed confinement status
CPT/HCPCS: 31500; 36415; 36600; 71045; 76770; 80048; 80053; 80202; 80305; 80307; 80320; 80329; 81003; 82140; 82270; 82375; 82550; 82805; 82962; 83605; 83735; 84100; 84145; 84443; 84478; 84484; 85025; 87070; 87426; 87804; 92610; 93005; 93306; 93970; 93971; 94002; 94003; 94640; 94660; 99285; A6261; C1893; C9113; J0360; J0456; J0610; J0692; J1200; J1650; J1815; J2060; J2250; J2405; J2543; J2597; J2704; J2920; J2930; J3010; J3370; J3490; J7030; J7040; J7050; J7060; J7070; J7512; Q9957; G0480